=== PATIENT | female | born 1955 | race African-American/Black ===

== ENCOUNTER 2020-02-03 10:59 | Emergency (ER) | payer MEDICAID ==
[~2020-02-03] VITALS: Ht 160 cm; Wt 75.0 kg
[2020-02-03 11:13] VITALS: BP 156/72
== END 2020-02-03 11:48 | disposition home or self-care (01) ==
LOC: ER 10:59
DX: R20.2 Paresthesia of skin (principal)
CPT/HCPCS: 99281